=== PATIENT | male | born 1980 | race African-American/Black ===

== ENCOUNTER 2017-04-10 22:29 | Inpatient (IN) ==
[2017-04-10] MEDS ORDERED: HYDROmorphone 2 MG/1 ML VIAL IV STA (23:41)
[2017-04-10] MEDS ORDERED: PANTOPRAZOLE 40 MG VIAL IV STA (23:41)
[2017-04-10] MEDS ORDERED: SODIUM CHLORIDE 0.9% 500 ML IV STA (23:41)
[2017-04-10] MEDS ORDERED: ALUM/MAG/SIMETH/LIDO VISC 1:1 30 ML BOTTLE PO STA (23:41)
[2017-04-10] MEDS ORDERED: ONDANSETRON 4 MG/2 ML VIAL IV STA (23:41)
--- NOTE | 2017-04-10 23:54 | Emergency Department Note ---
Dada Morel Brittany, am scribing for, and in the presence of, Jaya Covarrubias MD 23:45. Marci Morel Charles R, MD, personally performed the services described in this documentation, ascribed by Karen Garland in my presence, and it is both accurate and complete 354 . Arrival - Arrival ED Nursing Triage Note: patients mother states patient has gildardo attempting to have a bm all day unsuccessful and loss of appetite. Mode of Arrival: Ambulatory Limitations: No Limitations Source: Patient, RN Notes Reviewed - History of Present Illness Onset (ago): day(s) (1) Consistency: constant <Jaya Covarrubias - Last Filed: 04/11/17 01:37> <Kristian Izquierdo - Last Filed: 04/11/17 02:48> - Arrival Chief Complaint: Abdominal / Flank Pain Stated Complaint: ask pt Time Seen by Provider: 04/10/17 23:22 - History of Present Illness HPI Narrative: Patient is a 36 y/o black male presenting to the ED accompanied by parents with c/o distended abdomen, constipation, and fever which onset yesterday. Patient has a well known history of Autism and is nonverbal, his mother will provide history. Mother reports that patient usually has bouts of constipation, but never this severe. She states that in the evening yesterday she noticed his abdomen began to swell, became gaseous, and had a fever. She reports that today he progressively declined in health, noting that he was sleeping more than usual , acting out of his baseline, decrease in appetite, and noticed an unusual odor to his mouth. She states that she tried giving patient prune juice and apple juice this evening to try and promote a bowel movement, but neither intervention was successful. Patient has not vomited, but he has attempted. Mother reports that patient has had a fluctuation in blood pressure today as well. Patient has had a Colostomy before, but this was reversed per Dr. Ruggiero and Dr. Perdomo. Mother states that she gave patient's PM meds prior to presentation here tonight. No other complaint/pain. (Karen Garland) Patient is a 36 y/o black male presenting to the ED accompanied by parents with c/o distended abdomen, constipation, and fever which onset yesterday. Patient has a well known history of Autism and is nonverbal, his mother will provide history. Mother reports that patient usually has bouts of constipation, but never this severe. She states that in the evening yesterday she noticed his abdomen began to swell, became gaseous, and had a fever. She reports that today he progressively declined in health, noting that he was sleeping more than usual , acting out of his baseline, decrease in appetite, and noticed an unusual odor to his mouth. She states that she tried giving patient prune juice and apple juice this evening to try and promote a bowel movement, but neither intervention was successful. Patient has not vomited, but he has attempted. Mother reports that patient has had a fluctuation in blood pressure today as well. Patient has had a Colostomy before, but this was reversed per Dr. Ruggiero and Dr. Perdomo. Mother states that she gave patient's PM meds prior to presentation here tonight. No other complaint/pain. (Jaya Covarrubias) Allergies/Adverse Reactions: Allergies Allergy/AdvReac Type Severity Reaction Status Date / Time No Known Allergies Allergy Verified 10/12/16 06:48 Home Medications: Home Medications Medication Instructions Recorded Confirmed Type Divalproex ER [Depakote ER] 1,000 mg PO BEDTIME 06/11/15 06/27/16 History QUEtiapine [SEROquel] 50 mg PO BID 06/11/15 06/27/16 History Ziprasidone HCl [Geodon] 80 mg PO BID W/MEALS 06/11/15 06/27/16 History metFORMIN [Glucophage] 500 mg PO BID W/MEALS 06/11/15 06/27/16 History clonazePAM TAB [KlonoPIN] 0.5 mg PO BID PRN 11/04/15 06/27/16 History Naltrexone HCl 50 mg PO DAILY 12/07/15 06/27/16 History Polyethylene Glycol Powder 17 gm PO DAILY powder 12/14/15 06/27/16 Rx [Miralax] amLODIPine [Norvasc] 5 mg PO DAILY 06/27/16 06/27/16 History Lisinopril/Hydrochlorothiazide 1 each PO DAILY 07/04/16 07/04/16 History [Lisinopril-Hctz 20-25 mg Tab] Quetiapine Fumarate [Seroquel] 400 mg PO BID 07/04/16 07/04/16 History Polyethylene Glycol Powder 17 gm PO DAILY #238 gm 10/12/16 Rx [Miralax] Trazodone HCl 100 - 200 mg PO BEDTIME PRN 10/12/16 10/12/16 History Review of System - Review of System ROS unobtainable: due to mental status (due to being nonverbal and Autistic patient cannot speak for himself) <Jaya Covarrubias R - Last Filed: 04/11/17 01:37> Medical,Surgical,& Family Hx - Medical History Cardio: History of: Hypertension Psychological: Comment Only: Psychiatric Problems (AUTISTIC) Neurology: No history of: Seizures HEENT: 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) Endocrine: History of: Diabetes Mellitus (IDDM), Diabetes Mellitus (NIDDM) Gastrointestinal: History of: Ulcerative Colitis (COLOSTOMY), GI Problems ( CONSTIPATION REQUIRING LAXATIVE) Other: History of: Miscellaneous Medical Problems (Mental Retardation and Autistic) - Surgical History Cardiac Surgeries: Patient Denies: Cardiac Catheterization Neurologic Surgeries: Patient denies: Neurologic Surgery Abdominal Surgeries: Surgical HX of: Abdominal Surgery (colostomy- 02/10/15), Colonoscopy Reproductive Surgeries: Patient denies;: Genitourinary Surgery - Family History Family History: Reports;: Family Diabetes (mother), Family Hypertension (mother) Denies;: Family Anesthesia Reaction, Family Cancer, Family Heart Disease, Family Psychiatric Problems, Family Stroke - Social History Smoking Status: Never smoker Frequency of Alcohol Use: None Type of Drug Use: None <Jaya Covarrubias R - Last Filed: 04/11/17 01:37> Exam - General General appearance: alert, in no apparent distress, other (this is a 36 y/o mentally challenged black male, he is nonverbal, septic appearing) - Head Head exam: Present: atraumatic, normocephalic, normal inspection - Eye Eye exam: Present: PERRL, EOMI. Absent: normal appearance (sunken orbits bilaterally) - ENT ENT exam: Present: mucous membranes dry. Absent: normal oropharynx, mucous membranes moist - Neck Neck exam: Present: normal inspection, full ROM, trachea midline - Chest Chest inspection: Present: normal inspection, symmetric chest wall rise - Respiratory Respiratory exam: Present: normal lung sounds bilaterally - Cardiovascular Cardiovascular exam: Present: normal rhythm, tachycardia, normal heart sounds. Absent: regular rate - Abdominal Exam Abdominal exam: Present: distention, tenderness (diffuse abdominal tenderness to palpation), guarding. Absent: normal bowel sounds (high pitched, tinkling ) - Extremities Exam Extremities exam: Present: normal inspection - Back Exam Back exam: Present: normal inspection - Neurological Exam Neurological exam: Present: alert, oriented X3, CN II-XII intact. Absent: motor sensory deficit - Psychiatric Psychiatric exam: Present: normal affect, normal mood - Skin Skin exam: Present: warm, dry <Jaya Covarrubias - Last Filed: 04/11/17 01:37> Vital Signs: Vital Signs Temperature 96.7 F L 04/10/17 22:47 Pulse Rate 133 H 04/10/17 22:47 Respiratory Rate 20 04/10/17 22:47 Blood Pressure 149/99 04/10/17 22:47 O2 Sat by Pulse Oximetry 98 04/10/17 22:47 Course - Consultations Time: 01:37 <Jaya Covarrubias - Last Filed: 04/11/17 01:37> <Kristian Izquierdo - Last Filed: 04/11/17 02:48> - Reevaluation(s) Reevaluation #1: Advised patient of the need for hospitalization for further workup of his mass ( Kristian Izquierdo) - Consultations Consultation #1: Signed out to ER doctor who will be assuming care of this patient CT scan is pending (Jaya Covarrubias) Consultation #2: Discussed with hospitalist service who will admit for further evaluation treatment. 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) <Kristian Izquierdo - Last Filed: 04/11/17 02:48> - Labs Labs: Laboratory Tests 04/10/17 00:30 WBC 11.6 RBC 5.06 Hgb 14.6 Hct 41.7 L MCV 82.4 L Plt Count 312 Neut % (Auto) 78.1 H Lymph % (Auto) 10.5 L Neut # (Auto) 9.1 H Lymph # (Auto) 1.2 L Preston # (Auto) 1.2 H Laboratory Tests 04/10/17 00:30 Sodium 136 Potassium 3.9 Chloride 95 L Carbon Dioxide 29 Anion Gap 15.9 H BUN 15 Creatinine 1.30 Glucose 120 H Lactic Acid 2.6 H Calcium 9.7 Magnesium 2.3 AST 41 H Troponin I < 0.015 Total Protein 8.5 H Globulin 4.4 H Albumin/Globulin Ratio 0.9 L (Karen Garland) Laboratory Tests 04/10/17 00:30 WBC 11.6 RBC 5.06 Hgb 14.6 Hct 41.7 L MCV 82.4 L Plt Count 312 Neut % (Auto) 78.1 H Lymph % (Auto) 10.5 L Neut # (Auto) 9.1 H Lymph # (Auto) 1.2 L Preston # (Auto) 1.2 H Laboratory Tests 04/10/17 00:30 Sodium 136 Potassium 3.9 Chloride 95 L Carbon Dioxide 29 Anion Gap 15.9 H BUN 15 Creatinine 1.30 Glucose 120 H Lactic Acid 2.6 H Calcium 9.7 Magnesium 2.3 AST 41 H Troponin I < 0.015 Total Protein 8.5 H Globulin 4.4 H Albumin/Globulin Ratio 0.9 L (Jaya Covarrubias) Disposition Case discussed with: patient, patient's family <Jaya Covarrubias - Last Filed: 04/11/17 01:37> Time of Disposition: 02:45 <Kristian Izquierdo - Last Filed: 04/11/17 02:48> Clinical Impression: Abdominal distension, Chronic constipation, Autistic disorder, Abdominal pain, Retroperitoneal mass, Autism, Ulcerative colitis, Status post colostomy, Diabetes Condition: Guarded
[2017-04-11] MEDS ORDERED: PANTOPRAZOLE 40 MG VIAL IV ONE (00:08)
[2017-04-11] MEDS ORDERED: HYDROmorphone 2 MG/1 ML VIAL ONE (00:08)
[2017-04-11] MEDS ORDERED: ONDANSETRON 4 MG/2 ML VIAL ONE ×2 (00:08→02:49)
[2017-04-11 00:44] LABS: Basophils % 0.3 % (0.0-0.8); Eosinophils % 0.1 % (0.00-10.9); Hematocrit 41.7 VOL% (42.0-52.0); Hemoglobin 14.6 GM/DL (14.0-18.0); Immature Granulocytes % 0.6 %; Immature Granulocytes Absolute 0.07 #; Lymphocytes # 1.2 10*3/uL (1.4-4.0); Lymphocytes % 10.5 % (21.2-54.2); Mean Corpuscular Hemoglobin 29 PG (27-34); Mean Corpuscular Volume 82.4 FL (87-102); Monocytes # 1.2 10*3/uL (0.11-0.8); Monocytes % 10.4 % (1.7-12.7); Neutrophils # 9.1 10*3/uL (1.4-7.4); Neutrophils % 78.1 % (38.7-73.9); Platelet Count 312 T/CUMM (130-400); Red Blood Count 5.06 MC/CUMM (3.8-5.5); Red Cell Distribution Width 13.1 % (9.3-17.3); White Blood Count 11.6 T/CUMM (4-12)
[2017-04-11] MEDS ORDERED: ALUM/MAG/SIMETH/LIDO VISC 1:1 30 ML BOTTLE PO ONE (01:01)
[2017-04-11 01:05] LABS: Alanine Aminotransferase 31 U/L (16-61); Albumin 4.1 G/DL (3.4-5.0); Alkaline Phosphatase 74 U/L (45-117); Amylase 85 U/L (25-115); Aspartate Amino Transferase 41 U/L (0-37); Blood Urea Nitrogen 15 MG/DL (7-18); Calcium 9.7 MG/DL (8.5-10.1); Glucose 120 MG/DL (74-106); Magnesium 2.3 MG/DL (1.8-2.4); Potassium 3.9 MMOL/L (3.5-5.1); Sodium 136 MMOL/L (136-145); Total Protein 8.5 G/DL (6.4-8.3); Troponin I Only < 0.015 NG/ML (0.00-0.045)
[2017-04-11 01:13] LABS: Lactic Acid 2.6 MMOL/L (0.4-2.0)
[2017-04-11 01:25] LABS: Apearance,Urine CLEAR (Clear); Bilirubin,Urine Negative (Negative); Blood, Urine Negative (Negative); Glucose,Urine (UA) Negative (Negative); Hyaline Casts,Urine 38 /LPF (0-3); Ketones,Urine 5 mg/dL (Negative); Mucus,Urine Occasional /LPF (Occasional); Nitrite,Urine Negative (Negative); Protein,Urine 30 MG/DL; RBC,Urine 1 /HPF (0-4); Squamous Epithelial Cell,Urine Occasional /HPF (0-10); Urine Color Yellow (Yellow); Urine Specific Gravity 1.025 (1.001-1.035); Urine Urobilinogen < 2.0 EU/DL (0.2-1.0); WBC,Urine <1 /HPF (0-6)
[2017-04-11] MEDS ORDERED: METOCLOPRAMIDE 10 MG/2 ML VIAL IV STA (02:49)
[2017-04-11] MEDS ORDERED: METOCLOPRAMIDE 10 MG/2 ML VIAL ONE (02:49)
[2017-04-11] MEDS ORDERED: ONDANSETRON 4 MG/2 ML VIAL IV STA (02:49)
[2017-04-11] MEDS ORDERED: traZODone 50 MG TABLET PO PRN (03:14)
[2017-04-11] MEDS ORDERED: clonazePAM 0.5 MG TABLET PO PRN (03:14)
[2017-04-11] MEDS ORDERED: ONDANSETRON 4 MG/2 ML VIAL IV PRN (03:16)
[2017-04-11] MEDS ORDERED: MORPHINE 2 MG/1 ML SYRINGE IV PRN (03:16)
[2017-04-11] MEDS ORDERED: ACETAMINOPHEN 325 MG TABLET PO PRN (03:16)
--- NOTE | 2017-04-11 03:20 | Hospitalist History & Physical ---
Assessment and Plan (1) Right adrenal mass Status: Acute Current Visit: Yes (2) Constipation by delayed colonic transit Status: Acute Current Visit: Yes (3) Abdominal distension Status: Acute Current Visit: Yes (4) Autistic disorder Status: Acute Current Visit: Yes (5) Hypertension Status: Acute Current Visit: No Qualifiers: Hypertension type: essential hypertension Qualified Code(s): I10 - Essential (primary) hypertension (6) Type 2 diabetes mellitus Status: Chronic Assessment and plan: Plan: Soapsuds enema for constipation, supportive care for pain and nausea Consult urology for large right adrenal mass Continue antihypertensives, will place on sliding scale insulin with Accu-Cheks Clear liquids as tolerated Current Visit: No Qualifiers: Diabetes mellitus complication status: with unspecified complications Diabetes mellitus [facility] insulin use: without beautician apprentice use Qualified Code( s): E11.8 - Type 2 diabetes mellitus with unspecified complications History of Present Illness Chief complaint: Nausea, severe constipation, right adrenal mass History of present illness: Mr. Melendez is a 36 year old male with severe autism, hypertension, type 2 diabetes, who I've seen previously in consultation for diabetic management when he had his colostomy reversal last year. His mother has brought him in tonight due to constipation over the last 2-3 days. She is tried MiraLAX, milk of magnesia, fleets enema with little relief. She reports the patient is bloated, nauseated but has not had vomiting thus far. She reports subjective fever noting that the patient seems "hot at times." She has not taken his temperature. CT abdomen pelvis was obtained looking for bowel obstruction, however incidentally this shows a large right adrenal mass and significant constipation. I have subsequently been asked to admit the patient. He cannot provide any history due to his cognitive disorder however the mother is at the bedside she provides the history. Home Medications Medication Instructions Recorded Confirmed Type Divalproex ER [Depakote ER] 1,000 mg PO BEDTIME 06/11/15 06/27/16 History QUEtiapine [SEROquel] 50 mg PO BID 06/11/15 06/27/16 History Ziprasidone HCl [Geodon] 80 mg PO BID W/MEALS 06/11/15 06/27/16 History metFORMIN [Glucophage] 500 mg PO BID W/MEALS 06/11/15 06/27/16 History clonazePAM TAB [KlonoPIN] 0.5 mg PO BID PRN 11/04/15 06/27/16 History Naltrexone HCl 50 mg PO DAILY 12/07/15 06/27/16 History Polyethylene Glycol Powder 17 gm PO DAILY powder 12/14/15 06/27/16 Rx [Miralax] amLODIPine [Norvasc] 5 mg PO DAILY 06/27/16 06/27/16 History Lisinopril/Hydrochlorothiazide 1 each PO DAILY 07/04/16 07/04/16 History [Lisinopril-Hctz 20-25 mg Tab] Quetiapine Fumarate [Seroquel] 400 mg PO BID 07/04/16 07/04/16 History Polyethylene Glycol Powder 17 gm PO DAILY #238 gm 10/12/16 Rx [Miralax] Trazodone HCl 100 - 200 mg PO BEDTIME PRN 10/12/16 10/12/16 History Allergies Allergy/AdvReac Type Severity Reaction Status Date / Time No Known Allergies Allergy Verified 10/12/16 06:48 Medical,Surgical,& Family Hx - Medical History Cardio: History of: Hypertension Psychological: Comment Only: Psychiatric Problems (AUTISTIC) Neurology: No history of: Seizures HEENT: 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) Endocrine: History of: Diabetes Mellitus (NIDDM) Gastrointestinal: History of: GI Problems (Hx sigmoid volvulus s/p colostomy, reversal of colostomy November 2015) Other: History of: Miscellaneous Medical Problems (Mental Retardation and Autistic) - Surgical History Cardiac Surgeries: Patient Denies: Cardiac Catheterization Neurologic Surgeries: Patient denies: Neurologic Surgery Abdominal Surgeries: Surgical HX of: Abdominal Surgery (colostomy- 02/10/15, reversal of colostomy November 2015), Colonoscopy Reproductive Surgeries: Patient denies;: Genitourinary Surgery - Family History Family History: Reports;: Family Diabetes (mother), Family Hypertension (mother) Denies;: Family Anesthesia Reaction, Family Cancer, Family Heart Disease, Family Psychiatric Problems, Family Stroke - Social History Smoking Status: Never smoker Frequency of Alcohol Use: None Type of Drug Use: None Marital Status: Single Lives With:: Parent Review of systems: A 12 point review of systems is negative except as specified in the HPI Exam - Constitutional Vitals: Period Temp Pulse Resp BP Sys/Mackey Pulse Ox Last 24 Hr 96.7 F-96.7 F 133-133 20-20 149-149/99-99 98 Exam: EXAM: CONSTITUTIONAL: non toxic, NAD HEENT: NC, AT, OP benign, LIGIA, EOMI CV: RRR no m/g/r RESP: clear B/L, no w/r/r GI: abd distended, soft, no guarding or rebound, ND, + hypoactive bowel sounds INTEGUMENTARY: no lesions or rash EXTREMITIES: no c/c/e NEURO: Unable to participate due to cognitive disorder PSYCH: Consistent with baseline cognitive disorder Results - Labs CBC & BMP: 04/10/17 00:30 04/10/17 00:30 Lab Results: I have reviewed the past 24 hour labs - EKG EKG shows: tachycardia, sinus rhythm - Diagnostic Findings Procedure: CT: image reviewed by me, report reviewed by me
[2017-04-11] MEDS ORDERED: SODIUM CHLORIDE 0.9% 1,000 ML IV SCH (03:30)
[2017-04-11] MEDS ORDERED: DEXTROSE 50% 25 GM/50 ML VIAL IV PRN (04:12)
[2017-04-11] MEDS ORDERED: GLUCAGON 1 MG VIAL IM PRN (04:12)
[2017-04-11] MEDS: INSULIN REGULAR 100 UNIT/ML SUBCUT SCH ×3 (06:17→17:27)
--- NOTE | 2017-04-11 06:34 | CT Report ---
CT abdomen pelvis w con Indication: Abdominal pain, possible bowel obstruction Comparison: Prior CT abdomen pelvis 10/12/2016. Technique: CT of the abdomen and pelvis was performed following administration of intravenous contrast. Coronal and sagittal reformatted images were additionally created and submitted for review. The total DLP is 1414 mGy*cm. Dose reduction: This CT exam was performed using one or more of the following dose reduction techniques: Automated exposure control, automated adjustment of the mA and/or KV according to patient size, or use of iterative reconstruction technique. Findings: Very minimal posterior basilar dependent atelectatic changes are noted bilaterally. Lung bases are otherwise clear. There is no pleural or pericardial effusion. ABDOMEN: Liver/Gallbladder: No abnormal enhancing lesions are identified within the liver. Extensive streak artifact from photon starvation due to patient positioning (both arms overlying the patient) is noted and limits evaluation for subtle findings. No biliary ductal dilatation or gallstones are identified. Portal vein is grossly patent but otherwise not well evaluated Spleen: No acute findings. Pancreas: No definite focal pancreatic abnormality is identified. Pancreas is otherwise not well visualized. Adrenals: There is a large mass within the right adrenal gland, unchanged from prior this measures up to 10 cm maximum dimension, essentially unchanged. Left adrenal gland is unremarkable in appearance. Kidneys: Both kidneys enhance symmetrically. There is no evidence of obstructive uropathy. Hypodense lesion measuring approximately 1.5 cm upper pole left kidney is unchanged from prior may represent a cyst. Bowel/mesentery: Distal esophagus is mildly dilated. There is moderate dilatation of the stomach filled with ingested material. The colon is prominently dilated and diffusely filled with stool. Colon measures up to 8 cm. Diffuse small bowel dilatation is also noted within the central abdomen which is primarily fluid-filled but there is no transition point or marked dilatation to suggest focal small bowel obstruction. The overall findings are suggestive of diffuse ileus. There is no free fluid/air within the abdomen. There is no mesenteric adenopathy. Retroperitoneum: No evidence of aortic aneurysm or significant retroperitoneal adenopathy. PELVIS: No free fluid within the dependent pelvis. Bladder is collapsed and otherwise poorly evaluated. No adenopathy in the pelvis. Prostate is not enlarged. BONES: No acute or suspicious osseous abnormalities are identified. IMPRESSION: 1. Diffuse mildly dilated fluid-filled small bowel and significant stool burden throughout the colon which is also moderately dilated. There is no definite focal transition point to suggest high-grade small bowel obstruction. The findings are similar to the prior study from September 2016 and suggestive of diffuse small bowel/colonic ileus and/or moderate-severe fecal stasis/constipation changes. Superimposed infectious/inflammatory enteritis changes are not excluded. There is no evidence of bowel perforation or free air. 2. Stable appearance of a large right adrenal neoplasm. Preliminary report by virtual radiologic. 04/11/2017 6:25 AM PROCEDURE INTERPRETED AT [facility] DEPARTMENT OF RADIOLOGY Final Report Signed by: Ramez Arceo
[2017-04-11 07:10] LABS: Basophils % 0.1 % (0.0-0.8); Eosinophils % 0.1 % (0.00-10.9); Hematocrit 41.5 VOL% (42.0-52.0); Hemoglobin 14.4 GM/DL (14.0-18.0); Immature Granulocytes % 0.4 %; Immature Granulocytes Absolute 0.04 #; Lymphocytes # 0.9 10*3/uL (1.4-4.0); Lymphocytes % 7.9 % (21.2-54.2); Mean Corpuscular HGB Conc 34.7 GM/DL (32-36); Mean Corpuscular Hemoglobin 29 PG (27-34); Mean Corpuscular Volume 82.5 FL (87-102); Mean Platelet Volume 11.7 FL (9.6-12.0); Monocytes # 0.7 10*3/uL (0.11-0.8); Monocytes % 6.8 % (1.7-12.7); Neutrophils # 9.3 10*3/uL (1.4-7.4); Neutrophils % 84.7 % (38.7-73.9); Platelet Count 316 T/CUMM (130-400); Red Blood Count 5.03 MC/CUMM (3.8-5.5); Red Cell Distribution Width 13.2 % (9.3-17.3); White Blood Count 10.9 T/CUMM (4-12)
[2017-04-11 07:39] LABS: Albumin 3.9 G/DL (3.4-5.0); Bilirubin,Total 0.7 MG/DL (0.2-1.0); Calcium 9.4 MG/DL (8.5-10.1); Osmolality,Calculated 270.2 MOS/KG (273-304); Potassium 4.1 MMOL/L (3.5-5.1); Total Protein 8.3 G/DL (6.4-8.3)
--- NOTE | 2017-04-11 07:44 | EKG Report ---
Stationary ECG Study [facility] ER Test Date: 04/11/2017 12:47:36 AM Pat Name: ROCIO HERNANDEZ Department: Room: 232 Gender: M Foreman Or Supervisor And Operator: : 1980 Requested by: Jaya Ibrahim Order Number: [id number] Reading MD: BENJAMIN DELEON Intervals Burton Rate: 109 P: 137 IL: 138 QRS: 110 QRSD: 88 T: -30 QT: 302 QTc: 366 Interpretive Statements ECTOPIC ATRIAL TACHYCARDIA at 109 bpm RIGHT AXIS DEVIATION POSSIBLE INFERIOR IL AGE INDETERMINATE Electronically Signed On 04-11-17 11:04:29 CDT by BENJAMIN DELEON [email or web address]
--- NOTE | 2017-04-11 08:20 | XRay Report ---
Exam: XR chest 1V portable Date: 04/10/2017 11:42 PM Indication: Abdominal pain Comparison: 12/28/2015 Technical: AP supine Findings: Mild prominence the cardiac silhouette. Nasogastric tube has been removed. No obvious infiltrates or effusions present. A few reticular nodular densities are present mid inspiratory chest. The liver shadow is intact. The spleen and renal shadows are not well seen. Nonspecific GI pattern. Impression: 1. Mild cardiac prominence without overt decompensation 2. Removal nasogastric tube. 3. Nonspecific GI pattern PROCEDURE INTERPRETED AT [facility] DEPARTMENT OF RADIOLOGY Final Report Signed by: Dr. Jake Mota
--- NOTE | 2017-04-11 08:20 | XRay Report ---
XR abdomen 2V Clinical Information: Generalized abdominal pain, lower midline abdomen, constipation Comparison: Prior abdomen radiograph 10/12/2016 Findings: Diffuse mildly dilated small bowel and colon appears similar. Additionally, the colon is diffusely filled with fecal material. There is no free air identified. No abnormal calcific densities are identified in the abdomen or pelvis. Lung bases appear predominantly clear. There is no acute osseous abnormality. No suspicious osseous lesions are identified. Impression: No acute radiographic abnormality in the abdomen. A moderate degree of fecal stasis/constipation is suspected. PROCEDURE INTERPRETED AT [facility] DEPARTMENT OF RADIOLOGY Final Report Signed by: Ramez Arceo
[2017-04-11] MEDS ORDERED: QUEtiapine 100 MG TABLET PO SCH (09:00)
[2017-04-11] MEDS ORDERED: NALTREXONE HCL 50 MG PO SCH (09:00)
[2017-04-11] MEDS: LISINOPRIL/HCTZ 20-25 MG TABLET PO SCH (09:09)
[2017-04-11] MEDS: ZIPRASIDONE 20 MG CAPSULE PO SCH ×2 (09:09→16:45)
[2017-04-11] MEDS: QUEtiapine 100 MG TABLET PO SCH ×2 (09:09→21:08)
[2017-04-11] MEDS: POLYETHYLENE GLYCOL POWDER 17 GM PACK PO SCH (09:09)
[2017-04-11] MEDS: PANTOPRAZOLE 40 MG TABLET PO SCH (09:09)
[2017-04-11] MEDS: amLODIPine 5 MG TABLET PO SCH (09:09)
[2017-04-11] MEDS: ENOXAPARIN 40 MG/0.4 ML SYRINGE SUBCUT SCH (09:10)
--- NOTE | 2017-04-11 19:47 | Urology Consultation ---
Assessment and Plan - Time spent with patient Time spent with patient: Less than 30 minutes (1) Right adrenal mass Status: Acute Assessment and plan: I recommend the patient go to [facility] or some other Medical Center. This mass is intimate with the liver and if it needs resecting may have to have a partial liver resection and that is done by special surgeons. Current Visit: Yes History of Present Illness - Data of Consult Patient: new to practice Consult date: 04/11/17 Requesting Physician: Ahmet Mariee - Consult Narrative Reason for consult: Adrenal mass, right History of present illness: Mr. Melendez is a 36 year old male multiple issues. Has a known large right adrenal mass. This is not new. I reviewed the CT scan it is rather large and it is very intimate with the liver. I have recommended that they go to the [facility] to have this addressed if it needs to be addressed. This is beyond what I can help him with. CC: Zeus Stephen MD - Home Medications and Allergies Home Medications: Home Medications Medication Instructions Recorded Confirmed Type Divalproex ER [Depakote ER] 1,000 mg PO BEDTIME 06/11/15 04/11/17 History Ziprasidone HCl [Geodon] 160 mg PO BEDTIME 06/11/15 04/11/17 History metFORMIN [Glucophage] 500 mg PO BID W/MEALS 06/11/15 04/11/17 History Naltrexone HCl 50 mg PO BEDTIME 12/07/15 04/11/17 History amLODIPine [Norvasc] 10 mg PO DAILY 06/27/16 04/11/17 History Lisinopril/Hydrochlorothiazide 1 each PO DAILY 07/04/16 04/11/17 History [Lisinopril-Hctz 20-25 mg Tab] Quetiapine Fumarate [Seroquel] 400 mg PO BID 07/04/16 04/11/17 History Trazodone HCl 100 - 200 mg PO BEDTIME PRN 10/12/16 04/11/17 History Magnesium Hydroxide Susp [Milk of 30 ml PO DAILY 04/11/17 04/11/17 History Magnesia] Polyethylene Glycol Powder 17 gm PO BID 04/11/17 04/11/17 History [Miralax] Allergies/Adverse Reactions: Allergies Allergy/AdvReac Type Severity Reaction Status Date / Time No Known Allergies Allergy Verified 10/12/16 06:48 Exam - Constitutional Vitals: Period Temp Pulse Resp BP Sys/Mackey Pulse Ox Last 24 Hr 96.7 F-98.0 F 109-133 16-20 134-149/80-99 95-98 Results - Labs CBC & BMP: 04/11/17 04:29 04/11/17 04:29
[2017-04-11] MEDS ORDERED: DIVALPROEX ER 500 MG TABLET PO SCH (21:00)
[2017-04-12 05:49] LABS: Basophils # 0.1 10*3/uL (0.0-0.2); Basophils % 0.7 % (0.0-0.8); Eosinophils # 0.1 10*3/uL (0.0-0.87); Eosinophils % 0.6 % (0.00-10.9); Hematocrit 37.4 VOL% (42.0-52.0); Hemoglobin 13.2 GM/DL (14.0-18.0); Immature Granulocytes % 0.2 %; Immature Granulocytes Absolute 0.02 #; Mean Corpuscular HGB Conc 35.3 GM/DL (32-36); Mean Corpuscular Hemoglobin 29 PG (27-34); Mean Platelet Volume 11.2 FL (9.6-12.0); Monocytes % 11.9 % (1.7-12.7); Neutrophils # 5.5 10*3/uL (1.4-7.4); Neutrophils % 63.6 % (38.7-73.9); Platelet Count 256 T/CUMM (130-400); Red Blood Count 4.56 MC/CUMM (3.8-5.5); Red Cell Distribution Width 12.9 % (9.3-17.3); White Blood Count 8.6 T/CUMM (4-12)
[2017-04-12 06:17] LABS: Calcium 9.4 MG/DL (8.5-10.1); Magnesium 2.3 MG/DL (1.8-2.4); Potassium 3.8 MMOL/L (3.5-5.1)
[2017-04-12] MEDS: INSULIN REGULAR 100 UNIT/ML SUBCUT SCH ×3 (06:25→11:39)
--- NOTE | 2017-04-12 09:40 | XRay Report ---
Exam: XR KUB Date: 04/12/2017 7:35 AM Indication: Constipation Comparison: 04/10/2017 Technical: Supine abdomen Findings: Lung bases are unremarkable. The liver shadow is intact. The renal and spleen shadows are poorly seen. Moderate fecal debris in the rectal ampulla. Distention of the descending colon and splenic flexure present. Scattered air and debris present in the right colon. Bony structures are intact. Phleboliths are present. Impression: 1. Mild constipation with abdominal ileus pattern suspected PROCEDURE INTERPRETED AT [facility] DEPARTMENT OF RADIOLOGY Final Report Signed by: Dr. Jake Mota
[2017-04-12] MEDS: ZIPRASIDONE 20 MG CAPSULE PO SCH (10:37)
[2017-04-12] MEDS: QUEtiapine 100 MG TABLET PO SCH (10:38)
[2017-04-12] MEDS: amLODIPine 5 MG TABLET PO SCH (10:38)
[2017-04-12] MEDS: PANTOPRAZOLE 40 MG TABLET PO SCH (10:38)
[2017-04-12] MEDS: LISINOPRIL/HCTZ 20-25 MG TABLET PO SCH (10:39)
[2017-04-12] MEDS: ENOXAPARIN 40 MG/0.4 ML SYRINGE SUBCUT SCH (10:39)
[2017-04-12] MEDS: POLYETHYLENE GLYCOL POWDER 17 GM PACK PO SCH (10:40)
--- NOTE | 2017-04-12 10:49 | Discharge Summary ---
<Oneyda Burrda - Last Filed: 04/12/17 10:32> Hospital Course - Hospital Course Hospital Course: This is a very pleasant 36-year-old male that presented to the ED at [facility] on April 10, 2017 for the evaluation of abdominal distention, constipation, and fever. The patient has a very long and complex medical history significant for autism, hypertension, [id number] diabetes, chronic constipation, and insomnia. Patient has a surgical history significant for colectomy with creation of colostomy in 2014 and subsequent reversal of colostomy. The patient is nonverbal. At the time of ED presentation, his mother served as historian. The mother reported the onset of the above symptoms 1 day prior to presentation. She reported that the patient has bouts of constipation periodically; however not as severe as at the time of presentation. His mother reported that his abdomen started to "swell", he became gaseous, and started to experience fever. In addition, she noted that the patient's activity level was different from his baseline. She reported that the patient had a decrease in appetite, he was sleeping more, and had a unusual order to his mouth. His mother then attempted to give him prune and apple juice in an effort to promote a bowel movement, however it was unsuccessful. His mother became alarmed and she subsequently transported him to the ED for further evaluation. The patient was assessed at the time of ED presentation. The patient's lactic acid was noted at 2.6, chloride 95, lipase was noted at 199, amylase 85, and cardiac enzymes was less than 0.015. Chest x-ray reported mild cardiac prominence without overt decompensation and nonspecific GI pattern. Abdominal x -ray reported no acute radiographic abnormality in the abdomen; however a moderate amount of fecal stasis/constipation was suspected. CT abdomen pelvis reported diffusely mildly dilated fluidfeels small bowel and significant stool burden to the colon which is also moderately dilated; there was no definite focal transition point to suggest high-grade small bowel obstruction at that time. In addition, a large right adrenal neoplasm was noted. The patient was subsequently admitted to the hospitalist services for continuation of care. The patient was subsequently admitted. A soapsuds enema was given for constipation and supportive care for nausea and pain was provided. A urology consultation was requested for the evaluation of the large right renal mass. The patient was evaluated by urology. Upon review, the location of the right adrenal mass was noted to be in close proximity to the liver; which may require possible partial liver resection. The patient was then suggested to be evaluated at [facility]. The patient has regained function of his bowel. The patient has had multiple bowel movements. His vital signs are stable. He has not experienced any significant overnight events. The patient is afebrile. Today, we feel that he is indeed appropriate for discharge home to follow-up with his primary care physician. In addition, we have requested and contacted Dr. Sabas Howard, urologist at the [facility] in [place], [place] for evaluation. The appointment will be scheduled prior to discharge. Specialty Discharge - Follow Up or Referrals Follow up with: No PCP,. [Primary Care Provider] - (YOU ARE SCHEDULED TO SEE DR. NGO @ [facility] IN [facility] ON Apr @ 2 P.M. THE # IS [phone] THE ADDRESS IS [address] [place] [address],[place] [id number] [place] [address] [address]LO[address]) Discharge Plan - Discharge Data Disposition: Disch To Home/Self Care - Discharge Medications Continue Ziprasidone HCl [Geodon] 160 mg PO BEDTIME Divalproex ER [Depakote ER] 1,000 mg PO BEDTIME metFORMIN [Glucophage] 500 mg PO BID W/MEALS Naltrexone HCl 50 mg PO BEDTIME amLODIPine [Norvasc] 10 mg PO DAILY Quetiapine Fumarate [Seroquel] 400 mg PO BID Lisinopril/Hydrochlorothiazide [Lisinopril-Hctz 20-25 mg Tab] 1 each PO DAILY Trazodone HCl 100 - 200 mg PO BEDTIME PRN PRN Reason: Sleep Polyethylene Glycol Powder [Miralax] 17 gm PO BID Discontinued Magnesium Hydroxide Susp [Milk of Magnesia] 30 ml PO DAILY - Follow Up or Referral Follow Up: No PCP,. [Primary Care Provider] - (YOU ARE SCHEDULED TO SEE DR. NGO @ [facility] IN [facility] ON Apr @ 2 P.M. THE # IS [phone] THE ADDRESS IS [address] [address] [place] [id number] [place] [address] [address] FLO[address]) - Forms/Instructions Exam - Constitutional Vitals: Period Temp Pulse Resp BP Sys/Mackey Pulse Ox Last 24 Hr 96.7 F-98.1 F 97-118 15-22 130-159/80-91 95-98 Discharge Results Labs on day of discharge: Labs from last 24 hours 04/12/17 04/12/17 04/12/17 05:37 05:01 05:01 WBC 8.6 RBC 4.56 Hgb 13.2 L Hct 37.4 L MCV 82.0 L MCH 29 MCHC 35.3 RDW 12.9 Plt Count 256 MPV 11.2 Neut % (Auto) 63.6 Lymph % (Auto) 23.0 Dyer % (Auto) 11.9 Eos % (Auto) 0.6 Baso % (Auto) 0.7 Neut # (Auto) 5.5 Lymph # (Auto) 2.0 Dyer # (Auto) 1.0 H Eos # (Auto) 0.1 Baso # (Auto) 0.1 Immature Gran % 0.2 Nucleated RBC % 0.0 Immature Gran # 0.02 Nucleated RBCs # 0.00 Sodium 136 Potassium 3.8 Chloride 96 L Carbon Dioxide 34 H Anion Gap 9.8 BUN 15 Creatinine 1.10 GFR Calculation 119 BUN/Creatinine Ratio 13.00 Glucose 106 POC Glucose 111 H Calculated Osmolality 272.0 L Calcium 9.4 Magnesium 2.3 04/12/17 04/11/17 04/11/17 00:41 20:09 17:25 WBC RBC Hgb Hct MCV MCH MCHC RDW Plt Count MPV Neut % (Auto) Lymph % (Auto) Dyer % (Auto) Eos % (Auto) Baso % (Auto) Neut # (Auto) Lymph # (Auto) Dyer # (Auto) Eos # (Auto) Baso # (Auto) Immature Gran % Nucleated RBC % Immature Gran # Nucleated RBCs # Sodium Potassium Chloride Carbon Dioxide Anion Gap BUN Creatinine GFR Calculation BUN/Creatinine Ratio Glucose POC Glucose 104 143 H 195 H Calculated Osmolality Calcium Magnesium 04/11/17 00:50 WBC RBC Hgb Hct MCV MCH MCHC RDW Plt Count MPV Neut % (Auto) Lymph % (Auto) Dyer % (Auto) Eos % (Auto) Baso % (Auto) Neut # (Auto) Lymph # (Auto) Dyer # (Auto) Eos # (Auto) Baso # (Auto) Immature Gran % Nucleated RBC % Immature Gran # Nucleated RBCs # Sodium Potassium Chloride Carbon Dioxide Anion Gap BUN Creatinine GFR Calculation BUN/Creatinine Ratio Glucose POC Glucose 128 H Calculated Osmolality Calcium Magnesium DS: Provider Date of admission: 04/11/17 03:16 Primary care physician: . No PCP Attending physician on admission: Ahmet Mariee DO Consults: 04/11/17 03:16 Consult to Physician [CONS] Routine Comment: large adrenal mass Consulting Provider: Javier Patel Consult to Specialist Group: Urology When should Consulting Provider be notified: In am Person Notified: JED Date Notified: 04/11/17 Time Notified: 08:37 Discharging clinician: Blaire Burr CNP <Zeus Stephen - Last Filed: 04/12/17 10:53> Hospital Course - Time spent with patient Time with patient DS: Less than 30 minutes (25) Diagnosis - Discharge Diagnosis (1) Autistic disorder Status: Chronic (2) Type 2 diabetes mellitus Status: Chronic (3) Chronic constipation Status: Chronic (4) Right adrenal mass Status: Acute Discharge Plan - Discharge Data Condition at Discharge: Stable Discharge Diet: high fiber diet Activity: increase activity as tolerated Weight Bearing at Discharge: weight bear as tolerated Contact your physician if you experience:: fever over 101, Nausea/Vomiting, pain uncontrolled by pain medications Exam - Constitutional General appearance: over weight - Head Head exam: Present: normocephalic, atraumatic - Eye Eye exam: Present: EOMI Pupils: Present: LIGIA - ENT ENT exam: Present: normal exam - Neck Neck exam: Present: normal inspection - Respiratory Respiratory exam: Present: clear to auscultation bilaterally. Absent: rhonchi, wheezes - Cardiovascular Cardiovascular exam: Present: regular rate and rhythm - GI/Abdominal GI/Abdominal exam: Present: normal bowel sounds, soft. Absent: tenderness - Extremities Exam Extremities exam: Present: normal inspection - Back Exam Back exam: Present: normal inspection - Neurological Exam Neurological exam: Present: alert - Psychiatric Psychiatric exam: Present: normal affect, normal mood - Skin Skin exam: Present: warm, intact
[2017-04-12 12:08] VITALS: BP 124/71
== END 2017-04-12 13:55 | disposition home or self-care (01) | DRG 644 ==
LOC: N.ED 22:29 → N.EDINP 04-11 03:16 → SUATTDRO 04-11 03:16 → N.2E 04-11 03:52
PROVIDERS: ADMIT Internal Medicine; ATTEND Internal Medicine